=== PATIENT | female | born 1950 | race African-American/Black ===

== ENCOUNTER → 2016-07-21 | Outpatient (CLI) | payer OTHER, BC ==
[2016-07-21 10:20] LABS: BASO # 0.1 x10^3/uL (0.0-0.2); BASO % 1 % (0-3); EOS % 1 % (0-3); HEMATOCRIT 40.9 % (36.0-47.0); HEMOGLOBIN 14.2 g/dL (12.0-15.5); LYMPH # 2.3 x10^3/uL (1.0-4.8); LYMPH % 28 % (24-48); MEAN CORPUSCULAR HEMOGLOBIN 32 pg (25-35); MEAN CORPUSCULAR HGB CONC 35 g/dL (31-37); MEAN CORPUSCULAR VOLUME 91 fL (79-100); MONO % 7 % (0-9); NEUT % 64 % (31-73); PLATELET COUNT 346 x10^3/uL (140-400); RED BLOOD COUNT 4.48 x10^6/uL (3.50-5.40); RED CELL DISTRIBUTION WIDTH 13.1 % (11.5-14.5)
[2016-07-21 10:23] LABS: WHITE BLOOD COUNT 8.4 x10^3/uL (4.0-11.0)
[2016-07-21 10:41] LABS: ALBUMIN 4.1 g/dL (3.4-5.0); ALBUMIN/GLOBULIN RATIO 0.7 (1.0-1.7); CALCIUM 9.8 mg/dL (8.5-10.1); CREATININE 0.9 mg/dL (0.6-1.0); GFR 75.8; POTASSIUM 3.7 mmol/L (3.5-5.1); TOTAL BILIRUBIN 0.6 mg/dL (0.2-1.0); TOTAL PROTEIN 9.6 g/dL (6.4-8.2)
[2016-07-21 10:46] LABS: CHOLESTEROL/HDL RATIO 2.3
== END | disposition home or self-care (01) ==
LOC: LAB 09:46
PROVIDERS: ATTEND Internal Medicine Cardiovascular Disease
DX: I10 Essential (primary) hypertension (principal); E78.2 Mixed hyperlipidemia
CPT/HCPCS: 36415; 80053; 80061; 85027

== ENCOUNTER → 2016-11-23 | Outpatient (CLI) | payer OTHER, BC ==
[~2016-11-23] MED LIST: ASPI-482 PO; CLOP75TA PO; HYDR12.53 PO; LOSA1TAB18 PO
[2016-11-23 10:22] LABS: CALCIUM 9.7 mg/dL (8.5-10.1); GFR 66.9; POTASSIUM 3.9 mmol/L (3.5-5.1)
== END | disposition home or self-care (01) ==
LOC: LAB 09:44
PROVIDERS: ATTEND Internal Medicine Cardiovascular Disease
DX: I10 Essential (primary) hypertension (principal); E78.5 Hyperlipidemia, unspecified
CPT/HCPCS: 36415; 80048; 83036

== ENCOUNTER → 2016-11-28 | Outpatient (CLI) | payer OTHER, BC ==
--- NOTE | 2016-11-28 10:14 | KCIC ---
PQRS Compliance Statement: One or more of the following individualized dose reduction techniques were utilized for this examination: 1. Automated exposure control 2. Adjustment of the mA and/or kV according to patient size 3. Use of iterative reconstruction technique Coronary calcium score CT chest without contrast History: 66-year-old female with diabetes and hypertension. History of stroke. Family history of CAD, mom with myocardial infarction. Technique: With retrospective electrocardiogram gating 3 mm thick axial reconstructed noncontrast images of the chest at the level of the coronary arteries was performed. Images were post processed on a [employer] workstation and calcium score calculated using the modified Agatston Janowitz protocol. Findings: Total coronary calcium score is 153.5. This is a moderate plaque burden and high cardiovascular disease risk. This is based on the calcium score of 0 of the left main coronary artery, 78.9 of the left anterior descending artery, score of 74.5 of the left circumflex artery and score of 0 of the right coronary artery. There is calcium that may localize to a diagonal branch of the LAD. This is not included in the total calcium score. Noncoronary findings demonstrate normal cardiac size, no pericardial effusion. There is a 4 x 2 mm opacity near the right major fissure, may be an intrapulmonary lymph node. Visualized lungs are otherwise clear. There is a small intramuscular lipoma of the left subscapularis. IMPRESSION: Patient's total calcium score is 153.5. Electronically signed by: Scooby Alba MD (11/28/2016 10:10 AM) [id number]
== END | disposition home or self-care (01) ==
LOC: KCIC CT 08:51
PROVIDERS: ATTEND Internal Medicine Cardiovascular Disease
DX: E11.9 Type 2 diabetes mellitus without complications (principal); I10 Essential (primary) hypertension; D17.9 Benign lipomatous neoplasm, unspecified; I25.10 Atherosclerotic heart disease of native coronary artery without angina pectoris; Z86.73 Personal history of transient ischemic attack (TIA), and cerebral infarction without residual deficits; Z82.49 Family history of ischemic heart disease and other diseases of the circulatory system
CPT/HCPCS: 75571

== ENCOUNTER → 2017-02-15 | Outpatient (CLI) | payer OTHER, BC ==
[~2017-02-15] MED LIST changes: -LOSA1TAB18 PO; +LOSA1TAB25 PO; +REGADENOSON 0.4 MG/5 ML DISP.SYRIN. IV ONE
--- NOTE | 2017-02-15 14:09 | RAD ---
APPROVED REPORT Test Type: Pharmacological Stress Nurse/Tech: Marcia Eaton R.N. Test Indications: htn, cva Cardiac History: htn, cva, dm Medications: see ehr Medical History: see ehr Resting ECG: SR Resting Heart Rate: 59 bpm Resting Blood Pressure: 125/69mmHg Pretest Chest Pain: No chest pain Nurse/Tech Notes Lungs cta, heart tones regular, good pulse Consent: The procedure was explained to the patient in lay terms. Informed consent was witnessed. Toby eout was entered into [employer]. History and Stress Test performed by Marcia Eaton R.N. Pharm. Details Pharmacologic stress testing was performed using 0.4mg per 5ml of regadenoson given intravenously ove r 7-10 seconds. Stress Symptoms No chest pain or symptoms. POST EXERCISE Reason for Termination: Infusion complete Target HR: No Max HR: 91 bpm Max Blood Pressure: 123/56mmHg Chest Pain: No. Arrhythmia: No. ST Change: No. INTERPRETATION Stress EKG Conclusion: No evidence of stress induced EKG changes. Imaging Protocol IMAGE PROTOCOL: Rest Tc-99m/stress Tc-99m 1 day Rest: Stress: Viability: Radiopharm.Tc99m [id number] Sestamibi Dose10.4mCi 32mCi Duration 15min. 10min. Img Date 02/15/2017 02/15/2017 Inj-Img [id number]. 60min. Rest Admin Site:IV - Left AntecubitalAdministrator:RT Missael (R)(N) Stress Admin Site: IV - Left AntecubitalAdministrator: RT Missael (R)(N) STRESS DATA End Diast. Vol.72.0mlAv. Heart Rate70.0bpm End Syst. Vol.16.0mlCO Index BSA0.0L/min Myocardial Dhce992.0gEject. Tjnbjcyw54.0% Stress Rates Pk. Fill Rate3.30EDV/secLVtime Pk. Fill 264.20msec Pk. Empty Rate4.40ESV/secLVtime Pk. Laica897.62msec 03/07 Pk. Fill0.97EDV/sec Stress Scores Regional WT0.00Summed WT2.00 Regional WM0.00Summed WM1.00 The rest and stress images show normal perfusion, normal contraction and thickening. LV Perf. Quant 17 Seg. SSS0.00 17 Seg. SRS0.00 17 Seg. SDS0.00 Stress Defect Extent (% LAD)0.00Rest Defect Extent (% LAD)0.00Rev. Defect Extent (% LAD)0.00 Stress Defect Extent (% LCX) 0.00Rest Defect Extent (% LCX)0.00Rev. Defect Extent (% LCX)0.00 Stress Defect Extent (% RCA)0.00Rest Defect Extent (% RCA)0.00Rev. Defect Extent (% RCA)0.00 Stress Defect Extent (% ANASTASIA)0.00Rest Defect Extent (% ANASTASIA)0.00Rev. Defect Extent (% ANASTASIA)0.00 Other Information Quality:Good Risk Assessment: Low Risk Conclusion 1. No evidence of stress induced EKG changes. Baseline EKG with non-specific ST/T changes. 2. Normal perfusion at stress/rest. 3. Normal EF at > 70% 4. Low risk study
== END | disposition home or self-care (01) ==
LOC: NM 12:01
PROVIDERS: ATTEND Internal Medicine Cardiovascular Disease
DX: I10 Essential (primary) hypertension (principal); I63.8 Other cerebral infarction; E11.9 Type 2 diabetes mellitus without complications; I49.5 Sick sinus syndrome
CPT/HCPCS: 78452; 93017; 96374; 96375; 96376; A9500; J2785

== ENCOUNTER → 2017-05-11 | Outpatient (CLI) | payer OTHER, BC ==
[2017-05-11 09:07] LABS: CHOLESTEROL 104 mg/dL (0-200); HDLC 53 mg/dL (40-60); LDLC 38 mg/dL (0-100); NON-HDL CHOLESTEROL 51 mg/dL (0-129); TRIGLYCERIDES 67 mg/dL (0-150); VLDLC 13 mg/dL (0-40)
== END | disposition home or self-care (01) ==
LOC: LAB 08:23
DX: E78.5 Hyperlipidemia, unspecified (principal)
CPT/HCPCS: 36415; 80061

== ENCOUNTER → 2018-11-26 | Outpatient (CLI) | payer MEDICARE, BC ==
[~2018-11-26] MED LIST changes: -HYDR12.53 PO; +HYDR12.575 PO; -REGADENOSON 0.4 MG/5 ML DISP.SYRIN. IV ONE
[2018-11-26 10:53] LABS: BASO # 0.1 x10^3/uL (0.0-0.2); BASO % 1 % (0-3); EOS # 0.2 x10^3/uL (0.0-0.7); EOS % 3 % (0-3); HEMATOCRIT 37.2 % (36.0-47.0); HEMOGLOBIN 12.3 g/dL (12.0-15.5); LYMPH # 1.8 x10^3/uL (1.0-4.8); LYMPH % 28 % (24-48); MEAN CORPUSCULAR HEMOGLOBIN 30 pg (25-35); MEAN CORPUSCULAR HGB CONC 33 g/dL (31-37); MEAN CORPUSCULAR VOLUME 91 fL (79-100); MONO # 0.5 x10^3/uL (0.0-1.1); MONO % 7 % (0-9); NEUT # 3.9 x10^3/uL (1.8-7.7); NEUT % 61 % (31-73); PLATELET COUNT 267 x10^3/uL (140-400); RED BLOOD COUNT 4.07 x10^6/uL (3.50-5.40); RED CELL DISTRIBUTION WIDTH 13.7 % (11.5-14.5); WHITE BLOOD COUNT 6.4 x10^3/uL (4.0-11.0)
[2018-11-26 11:22] LABS: ALBUMIN 3.7 g/dL (3.4-5.0); ALBUMIN/GLOBULIN RATIO 0.8 (1.0-1.7); CHOLESTEROL/HDL RATIO 1.9; GFR 66.5; MAGNESIUM 2.1 mg/dL (1.8-2.4); POTASSIUM 3.8 mmol/L (3.5-5.1); TOTAL BILIRUBIN 0.4 mg/dL (0.2-1.0); TOTAL PROTEIN 8.5 g/dL (6.4-8.2)
== END | disposition home or self-care (01) ==
LOC: LAB 10:24
PROVIDERS: ATTEND Internal Medicine Cardiovascular Disease
DX: E78.2 Mixed hyperlipidemia (principal); I10 Essential (primary) hypertension; R53.83 Other fatigue; Z86.73 Personal history of transient ischemic attack (TIA), and cerebral infarction without residual deficits
CPT/HCPCS: 80053; 80061; 82550; 83695; 83700; 83735; 85025

== ENCOUNTER → 2019-01-16 | Outpatient (CLI) | payer MEDICARE, BC | END | disposition home or self-care (01) | LOC: LAB 12:56 | PROVIDERS: ATTEND Internal Medicine Cardiovascular Disease | DX: I11.9 Hypertensive heart disease without heart failure (principal); E78.2 Mixed hyperlipidemia; R53.83 Other fatigue | CPT/HCPCS: 36415; 86803 ==

== ENCOUNTER → 2019-02-24 | Outpatient (CLI) | payer MEDICARE, BC | END | disposition home or self-care (01) | LOC: LAB 10:32 | PROVIDERS: ATTEND Internal Medicine Cardiovascular Disease | DX: E78.2 Mixed hyperlipidemia (principal); I10 Essential (primary) hypertension; R53.83 Other fatigue | CPT/HCPCS: 36415 ==

== ENCOUNTER → 2020-01-07 | Outpatient (CLI) | payer MEDICARE, BC ==
[2020-01-07 10:52] LABS: BASO # 0.1 x10^3/uL (0.0-0.2); BASO % 1 % (0-3); EOS # 0.2 x10^3/uL (0.0-0.7); EOS % 3 % (0-3); HEMATOCRIT 37.1 % (36.0-47.0); HEMOGLOBIN 12.4 g/dL (12.0-15.5); LYMPH # 1.7 x10^3/uL (1.0-4.8); LYMPH % 29 % (24-48); MEAN CORPUSCULAR HEMOGLOBIN 31 pg (25-35); MEAN CORPUSCULAR HGB CONC 33 g/dL (31-37); MEAN CORPUSCULAR VOLUME 92 fL (79-100); MONO # 0.5 x10^3/uL (0.0-1.1); MONO % 9 % (0-9); NEUT # 3.6 x10^3/uL (1.8-7.7); NEUT % 59 % (31-73); PLATELET COUNT 261 x10^3/uL (140-400); RED BLOOD COUNT 4.03 x10^6/uL (3.50-5.40); RED CELL DISTRIBUTION WIDTH 13.2 % (11.5-14.5); WHITE BLOOD COUNT 6.1 x10^3/uL (4.0-11.0)
[2020-01-07 11:04] LABS: ALBUMIN 3.6 g/dL (3.4-5.0); ALBUMIN/GLOBULIN RATIO 0.8 (1.0-1.7); CALCIUM 9.9 mg/dL (8.5-10.1); GFR 66.3; POTASSIUM 3.7 mmol/L (3.5-5.1); TOTAL BILIRUBIN 0.5 mg/dL (0.2-1.0); TOTAL PROTEIN 8.4 g/dL (6.4-8.2)
[2020-01-07 11:05] LABS: CHOLESTEROL/HDL RATIO 2.1
[2020-01-08 03:09] LABS: HEMOGLOBIN A1C 6.2 % (4.8-5.6)
== END ==
LOC: LAB 10:08
PROVIDERS: ATTEND Internal Medicine Cardiovascular Disease
DX: E78.2 Mixed hyperlipidemia (principal); E55.9 Vitamin D deficiency, unspecified; R53.83 Other fatigue; R73.09 Other abnormal glucose
CPT/HCPCS: 80053; 80061; 82306; 83036; 83700; 85025; 86141

== ENCOUNTER → 2021-06-13 | Outpatient (CLI) | payer MEDICARE, BC ==
[2021-06-13 11:12] LABS: BASO # 0.1 x10^3/uL (0.0-0.2); BASO % 1 % (0-3); EOS # 0.4 x10^3/uL (0.0-0.7); EOS % 5 % (0-3); HEMATOCRIT 36.2 % (36.0-47.0); HEMOGLOBIN 11.7 g/dL (12.0-15.5); LYMPH # 1.7 x10^3/uL (1.0-4.8); LYMPH % 23 % (24-48); MEAN CORPUSCULAR HEMOGLOBIN 29 pg (25-35); MEAN CORPUSCULAR HGB CONC 33 g/dL (31-37); MEAN CORPUSCULAR VOLUME 88 fL (79-100); MONO # 0.5 x10^3/uL (0.0-1.1); MONO % 6 % (0-9); NEUT # 4.6 x10^3/uL (1.8-7.7); NEUT % 64 % (31-73); PLATELET COUNT 288 x10^3/uL (140-400); RED BLOOD COUNT 4.09 x10^6/uL (3.50-5.40); RED CELL DISTRIBUTION WIDTH 16.4 % (11.5-14.5); WHITE BLOOD COUNT 7.1 x10^3/uL (4.0-11.0)
[2021-06-13 11:23] LABS: ALBUMIN 3.9 g/dL (3.4-5.0); ALBUMIN/GLOBULIN RATIO 0.8 (1.0-1.7); CALCIUM 9.2 mg/dL (8.5-10.1); CREATININE 1.1 mg/dL (0.6-1.0); GFR 59.2; POTASSIUM 3.8 mmol/L (3.5-5.1); TOTAL BILIRUBIN 0.3 mg/dL (0.2-1.0); TOTAL PROTEIN 8.9 g/dL (6.4-8.2)
[2021-06-13 11:25] LABS: CHOLESTEROL/HDL RATIO 2.1
[2021-06-14 00:11] LABS: HEMOGLOBIN A1C 6.5 % (4.8-5.6)
== END ==
LOC: LAB 10:33
PROVIDERS: ATTEND Internal Medicine Cardiovascular Disease
DX: I10 Essential (primary) hypertension (principal); E11.9 Type 2 diabetes mellitus without complications; E78.2 Mixed hyperlipidemia; E55.9 Vitamin D deficiency, unspecified; E66.3 Overweight; F41.1 Generalized anxiety disorder; R01.2 Other cardiac sounds; I65.23 Occlusion and stenosis of bilateral carotid arteries; R53.83 Other fatigue; Z51.89 Encounter for other specified aftercare
CPT/HCPCS: 80053; 80061; 82306; 83036; 83700; 84443; 85025; 86141